=== PATIENT | female | born 1990 | race Caucasian/White ===

== ENCOUNTER 2017-12-20 05:06 | Inpatient (IN) | payer MEDICAID ==
[~2017-12-20] VITALS: Ht 162.6 cm; Wt 118.0 kg
[2017-12-20] MEDS ORDERED: OXYTOCIN 30U/ 0.9% NaCL 500ML 500 ML IV PRN (05:16)
[2017-12-20] MEDS ORDERED: OXYTOCIN 30U/ 0.9% NaCL 500ML 500 ML IV ONE (05:16)
[2017-12-20] MEDS: D5%-LACTATED RINGERS 1,000 ML IV SCH ×2 (05:16→13:16)
[2017-12-20] MEDS ORDERED: CALCIUM CARBONATE 500 MG TAB.CHEW PO PRN (05:30)
[2017-12-20] MEDS ORDERED: TERBUTALINE 1 MG/ML, 1ML IVPush PRN (05:30)
[2017-12-20] MEDS ORDERED: FENTANYL PF 100 MCG/2ML IV PRN (05:30)
[2017-12-20] MEDS ORDERED: ONDANSETRON 2MG/ML, 2ML IVPush PRN (05:30)
[2017-12-20] MEDS ORDERED: OXYTOCIN 30U/ 0.9% NaCL 500ML 500 ML ONE (06:03)
[2017-12-20 06:26] LABS: BASOPHILS # (AUTO) 0.02 x10^3/uL (0-0.1); BASOPHILS % (AUTO) 0 % (0-1); EOSINOPHILS # (AUTO) 0.03 x10^3/uL (0-0.4); EOSINOPHILS % (AUTO) 0 % (1-7); LYMPHOCYTES # (AUTO) 1.85 x10^3/uL (1-3.4); LYMPHOCYTES % (AUTO) 19 % (22-44); MD NO; MEAN CORPUSCULAR HEMOGLOBIN 29.4 pg (27.0-34.8); MEAN CORPUSCULAR VOLUME 86.6 fL (80-100); MEAN PLATELET VOLUME 8.3 fL (7.4-10.4); MONOCYTES # (AUTO) 0.51 x10^3/uL (0.2-0.8); MONOCYTES % (AUTO) 5 % (2-9); NEUTROPHILS # (AUTO) 7.38 x10^3/uL (1.8-6.8); NEUTROPHILS % (AUTO) 75 % (42-75); PLATELET COUNT 301 x10^3/uL (130-400); RED BLOOD COUNT 4.15 x10^6/uL (3.82-5.3); RED CELL DISTRIBUTION WIDTH 14.7 % (9.6-15.2)
[2017-12-20] MEDS ORDERED: LIDOCAINE 1%, 50ML ONE (09:10)
[2017-12-20] MEDS ORDERED: NEWBORN KIT ONE ×2 (09:11→19:19)
[2017-12-20] MEDS ORDERED: MISOPROSTOL 200 MCG TABLET ONE (09:11)
[2017-12-20] MEDS ORDERED: FENTANYL PF 100 MCG/2ML ONE ×2 (10:31→12:01)
[2017-12-20 10:53] LABS: BASOPHILS # (AUTO) 0.02 x10^3/uL (0-0.1); BASOPHILS % (AUTO) 0 % (0-1); EOSINOPHILS # (AUTO) 0.03 x10^3/uL (0-0.4); EOSINOPHILS % (AUTO) 0 % (1-7); LYMPHOCYTES # (AUTO) 2.11 x10^3/uL (1-3.4); LYMPHOCYTES % (AUTO) 22 % (22-44); MD NO; MEAN CORPUSCULAR HEMOGLOBIN 29.5 pg (27.0-34.8); MEAN CORPUSCULAR HGB CONC 33.8 g/dL (32.4-35.8); MEAN CORPUSCULAR VOLUME 87.5 fL (80-100); MEAN PLATELET VOLUME 8.5 fL (7.4-10.4); MONOCYTES # (AUTO) 0.58 x10^3/uL (0.2-0.8); MONOCYTES % (AUTO) 6 % (2-9); NEUTROPHILS # (AUTO) 7.04 x10^3/uL (1.8-6.8); NEUTROPHILS % (AUTO) 72 % (42-75); PLATELET COUNT 315 x10^3/uL (130-400); RED BLOOD COUNT 4.27 x10^6/uL (3.82-5.3); RED CELL DISTRIBUTION WIDTH 14.7 % (9.6-15.2)
[2017-12-20 10:56] LABS: MICROSCOPIC NOT IND
[2017-12-20] MEDS ORDERED: LABETALOL 5MG/ML, 20ML ONE ×2 (10:57→12:21)
[2017-12-20] MEDS ORDERED: LABETALOL 20 MG/4 ML IVPush ONE (11:00)
[2017-12-20] MEDS ORDERED: LABETALOL 5MG/ML, 20ML IVPush ONE ×2 (11:00)
[2017-12-20] MEDS ORDERED: hydrALAzine 20 MG/ML, 1ML IVPush ONE (11:00)
[2017-12-20] MEDS: FENTANYL PF 100 MCG/2ML IVPush PRN ×2 (11:03→12:09)
[2017-12-20 11:06] LABS: CHLORIDE 109 mmol/L (98-107)
[2017-12-20 11:17] LABS: ALANINE AMINOTRANSFERASE 20 U/L (12-78); ALBUMIN 2.6 g/dL (3.4-5.0); ALKALINE PHOSPHATASE 157 U/L (45-117); ANION GAP 8 mmol/L (5-15); BILIRUBIN,TOTAL 0.3 mg/dL (0.2-1.0); CALCIUM 9.5 mg/dL (8.5-10.1); CREATININE 0.64 mg/dL (0.55-1.02); TOTAL PROTEIN 6.8 g/dL (6.4-8.2)
[2017-12-20 11:41] LABS: BILIRUBIN, DIRECT < 0.1 mg/dL (0.1-0.2)
[2017-12-20] MEDS ORDERED: FENTANYL/BUPIV./NS/PF 250 ML EPIDCONT SCH ×2 (12:30→13:00)
[2017-12-20 12:45] LABS: CREATININE,URINE RANDOM 39.6 mg/dL
[2017-12-20] MEDS ORDERED: LACTATED RINGERS 1,000 ML IV SCH (13:00)
[2017-12-20] MEDS ORDERED: LACTATED RINGERS 1,000 ML IVBOLUS PRN (13:00)
[2017-12-20] MEDS ORDERED: NALOXONE 0.4 MG/ML, 1ML IVPush PRN (13:00)
[2017-12-20] MEDS ORDERED: EPHEDRINE 50 MG/ML, 1ML IVPush PRN (13:00)
[2017-12-20] MEDS ORDERED: FENTANYL PF 500 MCG, BUPIVACAINE/PF 0.5%, 30ML 62.5 ML in SODIUM CHLORIDE 0.9% 177.5 ML EPIDCONT SCH (13:00)
[2017-12-20] MEDS: LACTATED RINGERS 1,000 ML IV SCH ×2 (13:00→13:16)
[2017-12-20] MEDS ORDERED: BUPIVACAINE 0.25% ONE (13:01)
[2017-12-21] MEDS ORDERED: ONDANSETRON 2MG/ML, 2ML ONE (00:40)
[2017-12-21] MEDS ORDERED: OXYTOCIN 10 UNITS/ML, 1ML ONE (04:33)
[2017-12-21] MEDS ORDERED: OXYcodone/APAP 5/325MG TABLET ONE ×2 (04:48→10:17)
[2017-12-21] MEDS ORDERED: OXYTOCIN 30U/ 0.9% NaCL 500ML 500 ML IV SCH (04:51)
[2017-12-21] MEDS ORDERED: ONDANSETRON 2MG/ML, 2ML IV PRN (05:00)
[2017-12-21] MEDS ORDERED: MISOPROSTOL 200 MCG TABLET PR PRN (05:00)
[2017-12-21] MEDS: OXYcodone/APAP 5/325MG TABLET PO PRN ×5 (05:00→23:54)
[2017-12-21] MEDS ORDERED: METOCLOPRAMIDE 5 MG/ML, 2ML IV PRN (05:00)
[2017-12-21] MEDS ORDERED: ACETAMINOPHEN 325 MG TABLET PO PRN (05:00)
[2017-12-21] MEDS ORDERED: IBUPROFEN 600 MG TABLET PO PRN (05:00)
[2017-12-21] MEDS ORDERED: LABETALOL 5MG/ML, 20ML ONE (06:07)
[2017-12-21] MEDS ORDERED: LABETALOL 5MG/ML, 20ML IVPush ONE ×2 (07:00)
[2017-12-21] MEDS ORDERED: LABETALOL 20 MG/4 ML IVPush ONE (07:00)
[2017-12-21] MEDS ORDERED: hydrALAzine 20 MG/ML, 1ML IVPush ONE (07:00)
[2017-12-21] MEDS ORDERED: hydrALAzine 20 MG/ML, 1ML ONE (07:03)
[2017-12-21] MEDS ORDERED: niFEDipine ER 60 MG TABLET.ER PO ONE (07:39)
[2017-12-21] MEDS: niFEDipine ER 60 MG TABLET.ER PO SCH (08:02)
[2017-12-21 11:30] VITALS: BP 118/73
[2017-12-21] MEDS: PRENATAL VIT/IRON/FA 1 EACH TABLET PO SCH (14:51)
[2017-12-21 16:50] VITALS: BP 137/84
[2017-12-21] MEDS ORDERED: DIPH,PERTUSS(ACELL),TET VAC/PF NC IM-VACC ONE ×2 (19:18→19:30)
[2017-12-21] MEDS: DOCUSATE 100 MG CAPSULE PO PRN (19:33)
[2017-12-21 21:20] VITALS: BP 136/86
[2017-12-22 00:03] VITALS: BP 136/88
[2017-12-22] MEDS ORDERED: IBUP-1222 PO (02:21)
[2017-12-22 07:28] VITALS: BP 150/93
[2017-12-22] MEDS: niFEDipine ER 60 MG TABLET.ER PO SCH (08:16)
[2017-12-22] MEDS: DOCUSATE 100 MG CAPSULE PO PRN (08:16)
[2017-12-22] MEDS: PRENATAL VIT/IRON/FA 1 EACH TABLET PO SCH (08:16)
[2017-12-22] MEDS: OXYcodone/APAP 5/325MG TABLET PO PRN ×3 (08:18→19:13)
[2017-12-22] MEDS ORDERED: LORazepam INTENSOL 2 MG/ML BC PRN (09:30)
[2017-12-22 10:10] VITALS: BP 127/86
[2017-12-22 11:09] LABS: ALBUMIN 2.6 g/dL (3.4-5.0); ANION GAP 10 mmol/L (5-15); CALCIUM 8.6 mg/dL (8.5-10.1); CHLORIDE 107 mmol/L (98-107)
[2017-12-22 11:10] LABS: BASOPHILS # (AUTO) 0.07 x10^3/uL (0-0.1); BASOPHILS % (AUTO) 1 % (0-1); EOSINOPHILS # (AUTO) 0.11 x10^3/uL (0-0.4); EOSINOPHILS % (AUTO) 1 % (1-7); LYMPHOCYTES # (AUTO) 2.49 x10^3/uL (1-3.4); LYMPHOCYTES % (AUTO) 18 % (22-44); MD NO; MEAN CORPUSCULAR HEMOGLOBIN 29.5 pg (27.0-34.8); MEAN CORPUSCULAR HGB CONC 33.7 g/dL (32.4-35.8); MEAN CORPUSCULAR VOLUME 87.5 fL (80-100); MEAN PLATELET VOLUME 8.3 fL (7.4-10.4); MONOCYTES # (AUTO) 0.85 x10^3/uL (0.2-0.8); MONOCYTES % (AUTO) 6 % (2-9); NEUTROPHILS # (AUTO) 10.18 x10^3/uL (1.8-6.8); NEUTROPHILS % (AUTO) 74 % (42-75); PLATELET COUNT 293 x10^3/uL (130-400); RED BLOOD COUNT 3.96 x10^6/uL (3.82-5.3); RED CELL DISTRIBUTION WIDTH 14.9 % (9.6-15.2)
[2017-12-22 11:12] LABS: ALANINE AMINOTRANSFERASE 28 U/L (12-78); ALKALINE PHOSPHATASE 132 U/L (45-117); BILIRUBIN,TOTAL 0.2 mg/dL (0.2-1.0); CREATININE 0.58 mg/dL (0.55-1.02); TOTAL PROTEIN 6.7 g/dL (6.4-8.2)
[2017-12-22] MEDS: MAGNESIUM SULF. PMX 20GM/500ML 500 ML IV SCH (12:46)
[2017-12-22] MEDS ORDERED: MAGNESIUM SULFATE 4 GM in SODIUM CHLORIDE 0.9% 100 ML IV ONE (13:00)
[2017-12-22] MEDS ORDERED: MAGNESIUM SULFATE PMX 4GM/100M 100 ML IVPB ONE (13:00)
[2017-12-22] MEDS ORDERED: MAGNESIUM SULFATE PMX 4GM/100M 100 ML ONE (13:01)
[2017-12-22] MEDS ORDERED: MAGNESIUM SULF. PMX 20GM/500ML 500 ML IV ONE (13:01)
[2017-12-22 13:45] VITALS: BP 137/84
[2017-12-22] MEDS ORDERED: LACTATED RINGERS 1,000 ML IV SCH ×2 (14:00→14:08)
[2017-12-22 17:00] VITALS: BP 145/98
[2017-12-22] MEDS ORDERED: OXYcodone/APAP 5/325MG TABLET ONE ×2 (18:35→19:07)
[2017-12-22] MEDS ORDERED: LABETALOL 5MG/ML, 20ML ONE (21:31)
[2017-12-22] MEDS ORDERED: LABETALOL 20 MG/4 ML IVPush ONE (22:00)
[2017-12-22] MEDS ORDERED: hydrALAzine 20 MG/ML, 1ML IVPush ONE (22:00)
[2017-12-22] MEDS ORDERED: LABETALOL 5MG/ML, 20ML IVPush ONE ×2 (22:00)
[2017-12-23] MEDS ORDERED: MAGNESIUM SULF. PMX 20GM/500ML 500 ML IV ONE (00:53)
[2017-12-23] MEDS: MAGNESIUM SULF. PMX 20GM/500ML 500 ML IV SCH (00:58)
[2017-12-23 01:55] LABS: BASOPHILS # (AUTO) 0.08 x10^3/uL (0-0.1); BASOPHILS % (AUTO) 1 % (0-1); EOSINOPHILS # (AUTO) 0.16 x10^3/uL (0-0.4); EOSINOPHILS % (AUTO) 1 % (1-7); LYMPHOCYTES # (AUTO) 2.75 x10^3/uL (1-3.4); LYMPHOCYTES % (AUTO) 24 % (22-44); MD NO; MEAN CORPUSCULAR HEMOGLOBIN 28.8 pg (27.0-34.8); MEAN CORPUSCULAR HGB CONC 33.2 g/dL (32.4-35.8); MEAN CORPUSCULAR VOLUME 86.7 fL (80-100); MEAN PLATELET VOLUME 7.9 fL (7.4-10.4); MONOCYTES % (AUTO) 7 % (2-9); NEUTROPHILS # (AUTO) 7.66 x10^3/uL (1.8-6.8); NEUTROPHILS % (AUTO) 67 % (42-75); PLATELET COUNT 300 x10^3/uL (130-400); RED BLOOD COUNT 3.86 x10^6/uL (3.82-5.3); RED CELL DISTRIBUTION WIDTH 14.9 % (9.6-15.2)
[2017-12-23 02:06] LABS: ALANINE AMINOTRANSFERASE 27 U/L (12-78); ALBUMIN 2.4 g/dL (3.4-5.0); ANION GAP 8 mmol/L (5-15); CALCIUM 7.7 mg/dL (8.5-10.1); CHLORIDE 104 mmol/L (98-107); CREATININE 0.64 mg/dL (0.55-1.02)
[2017-12-23 02:07] LABS: ALKALINE PHOSPHATASE 117 U/L (45-117); BILIRUBIN,TOTAL 0.2 mg/dL (0.2-1.0); TOTAL PROTEIN 6.3 g/dL (6.4-8.2)
[2017-12-23] MEDS ORDERED: niFEDipine ER 60 MG TABLET.ER PO ONE (07:06)
[2017-12-23] MEDS: niFEDipine ER 60 MG TABLET.ER PO SCH (07:09)
[2017-12-23] MEDS ORDERED: PRENATAL VIT/IRON/FA 1 EACH TABLET ONE (08:53)
[2017-12-23] MEDS ORDERED: DOCUSATE 100 MG CAPSULE ONE (08:53)
[2017-12-23] MEDS: PRENATAL VIT/IRON/FA 1 EACH TABLET PO SCH (09:04)
[2017-12-23] MEDS: DOCUSATE 100 MG CAPSULE PO PRN ×2 (09:04→20:19)
[2017-12-23] MEDS ORDERED: OXYcodone/APAP 5/325MG TABLET ONE (09:59)
[2017-12-23] MEDS: OXYcodone/APAP 5/325MG TABLET PO PRN ×3 (10:01→20:19)
[2017-12-23 15:15] VITALS: BP 136/80
[2017-12-23 20:05] VITALS: BP 145/87
[2017-12-24 00:25] VITALS: BP 146/91
[2017-12-24 04:25] VITALS: BP 127/86
[2017-12-24] MEDS: OXYcodone/APAP 5/325MG TABLET PO PRN (05:09)
[2017-12-24 07:45] VITALS: BP 145/77
[2017-12-24] MEDS: PRENATAL VIT/IRON/FA 1 EACH TABLET PO SCH (07:46)
[2017-12-24] MEDS: DOCUSATE 100 MG CAPSULE PO PRN (07:46)
[2017-12-24] MEDS: niFEDipine ER 60 MG TABLET.ER PO SCH (07:46)
[2017-12-24] MEDS ORDERED: OXYC-302 PO (10:01)
[2017-12-24] MEDS ORDERED: NIFE10CA PO (10:01)
== END 2017-12-24 11:12 | disposition home or self-care (01) | DRG 774 ==
LOC: LDIP 05:06 → 2NW 12-21 11:11 → 2NE 12-22 13:54 → 2NW 12-23 13:23
PROVIDERS: ADMIT Obstetrics & Gynecology; ATTEND Obstetrics & Gynecology
PROC: 10E0XZZ Delivery of Products of Conception, External Approach (ICD-10-PCS; principal; 2017-12-21)
PROC: 0HQ9XZZ Repair Perineum Skin, External Approach (ICD-10-PCS; 2017-12-21)
PROC: 3E033VJ Introduction of Other Hormone into Peripheral Vein, Percutaneous Approach (ICD-10-PCS; 2017-12-21)
PROC: 10907ZC Drainage of Amniotic Fluid, Therapeutic from Products of Conception, Via Natural or Artificial Opening (ICD-10-PCS; 2017-12-21)
PROC: 3E0R3BZ Introduction of Anesthetic Agent into Spinal Canal, Percutaneous Approach (ICD-10-PCS; 2017-12-21)
PROC: 00HU33Z Insertion of Infusion Device into Spinal Canal, Percutaneous Approach (ICD-10-PCS; 2017-12-21)
DX: O99.214 Obesity complicating childbirth (principal); O14.95 Unspecified pre-eclampsia, complicating the puerperium; Z68.41 Body mass index [BMI] 40.0-44.9, adult; O70.0 First degree perineal laceration during delivery; Z37.0 Single live birth; Z3A.40 40 weeks gestation of pregnancy; E66.9 Obesity, unspecified; Z23 Encounter for immunization
CPT/HCPCS: 36415; 80053; 81003; 82248; 82570; 83735; 84156; 84550; 85025; 86850; 86900; 90715; J3010; J0360; J2590; J3475; J3490; J7120